=== PATIENT | male | born 1975 | race African-American/Black ===

== ENCOUNTER → 2017-01-03 | Outpatient (CLI) | payer OTHER ==
[~2017-01-03] MED LIST: ACYC400T OR; AMBI5TAB OR; FLUC10TA OR; FOLI5CAP OR; FONDAPARINUX SQ; LABE30TA OR; LEVA750T OR; MAGN250T OR; MULTIVIT PO; OXYC10TA12 OR; POSACONAZOLE PO; PRED5TAB OR; PULMICORT PO; SIROLIMUS PO; THIA100T OR; VIT D 2000 PO; [UNRECOGNIZED DRUG - OTHER] PO
--- NOTE | 2017-01-03 16:45 | REP ---
Duplex extremity venous ultrasound: Right lower extremity. History: Right lower extremity edema. Findings: The deep veins are anechoic and fully compressible from the groin to the popliteal fossa in the right lower extremity. Color flow imaging is homogeneous. Spectral Doppler interrogation demonstrates intact respiratory variation in flow and normal manual augmentation of flow. There is no evidence of deep vein thrombosis. Incidental note is made of several lymph nodes in the right groin. The largest of these is somewhat hypertrophied measuring 2.9 x 1.5 x 1.0 cm. This is essentially unchanged from the March 06, 2015 prior study. Impression: Lymph nodes noted in the right groin, one of which is mildly enlarged but unchanged from 2015. Otherwise negative right lower extremity duplex venous ultrasound. No evidence of deep vein thrombosis. Signed by Augustine Reyes MD 01/03/2017 04:36 P
== END ==
LOC: M RAD 15:18
PROVIDERS: ATTEND Family Medicine
DX: R60.0 Localized edema (principal)
CPT/HCPCS: 93971; G0463

== ENCOUNTER → 2018-06-20 | Outpatient (CLI) | payer OTHER | LOC: M RAD 07:40 | DX: H92.21 Otorrhagia, right ear (principal) ==

== ENCOUNTER → 2018-08-28 | Outpatient (REF) | payer OTHER ==
[2018-08-31 00:06] LABS: OXYCODONE SCREEN Negative ng/mL (Cutoff:5)
== END ==
LOC: M LAB REF 13:02
DX: Z00.00 Encounter for general adult medical examination without abnormal findings (principal)
CPT/HCPCS: 80307

== ENCOUNTER → 2018-08-29 | Outpatient (REF) | payer OTHER ==
[2018-09-01 10:13] LABS: QuantiFERON-TB Gold Plus Negative (Negative)
== END ==
LOC: M SMT PRO 12:54
DX: Z00.00 Encounter for general adult medical examination without abnormal findings (principal)
CPT/HCPCS: 36415

== ENCOUNTER → 2018-09-25 | Outpatient (CLI) | payer OTHER ==
[~2018-09-25] MED LIST changes: +ISOVUE-370 76% 100ML VIAL (Q9967) As Ordered ONE
--- NOTE | 2018-09-25 17:50 | REP ---
Soft Tissue CT study of the neck with contrast: History: History of Hodgkin's lymphoma. Two palpable lymph nodes on the right, preauricular and parotid. Comparison CT study of the internal auditory canal is dated June 20, [address] study of the neck is dated October 31, 2009. CT contrast dose: 75 mL of intravenous Isovue [address] findings: There is a lymph node in the superior aspect of the right parotid gland measuring 10 mm in short axis dimension. This measured 10 mm in short axis dimension in June of 2018 but it is larger than it was on the of November 08, 2009 study. There is some preservation of hilar fat. No other intraparotid lymph node is seen. There is a somewhat less well defined but similar size 9 mm preauricular lymph node on the right which is a new finding from the June 20, 2018 study. Anterior to the external jugular vein at the at the level of the inferior aspect of the right parotid gland, there is a lymph node measuring 8 mm in greatest diameter. There are bilateral submental lymph nodes which are larger than on the October 2009 prior study. One submental lymph node is seen on each side. These measure 10.4 and 10.8 mm in short axis dimension. There is no definite hilar fat associated with either of these lymph nodes which as a change from 2009. There is a smaller right mandibular lymph node measuring 9 mm in greatest diameter. Anterior cervical lymph nodes are noted bilaterally but these are normal in size and smaller than on the 2009 study. No supraclavicular nodes are visible today. Thyroid lobes are normal and symmetric. The upper mediastinum is clear. The lung apices are clear. No bony abnormality is seen. There is a mucous retention cyst in the right maxillary sinus. The middle ear cavities appear to be aerated. There is no evidence of mastoid sinus disease on the right. There is partial opacification of the left mastoid air cells visible today. This it is a change from the recent CT study of June 20, 2018. Impression: There is a 9 mm preauricular node and a 10 mm short axis parotid lymph node on the right. These, as well as two submental and one submandibular lymph nodes, are larger than on the 2009 prior study. There is partial filling of the mastoid air cells on the left consistent with some degree of paranasal sinus inflammation in the mastoid sinus. There is a right maxillary sinus mucous retention cyst. The middle ear cavities remain normally aerated. Electronically Signed by Augustine Reyes MD 09/25/2018 07:47 P
== END ==
LOC: M RAD 16:10
PROVIDERS: ATTEND Otolaryngology
DX: R59.9 Enlarged lymph nodes, unspecified (principal); Z85.71 Personal history of Hodgkin lymphoma
CPT/HCPCS: 70491; Q9967

== ENCOUNTER → 2018-10-06 | Outpatient (CLI) | payer OTHER ==
[~2018-10-06] MED LIST changes: -ISOVUE-370 76% 100ML VIAL (Q9967) As Ordered ONE; +LIDOCAINE 1% MDV 20ML VIAL As Ordered ONE
--- NOTE | 2018-10-06 19:57 | REP ---
ULTRASOUND-GUIDED PREAURICULAR AND SUBMENTAL LYMPH NODE BIOPSY The procedure was performed under the direct supervision of Dr. Reyes. In in the patient has a history of a preauricular lymph node and two submental lymph nodes seen on a previous CT scan dated 09/25/2018. The risks and benefits of the procedure were explained to the patient and informed consent was obtained. The node in the submental region was addressed first. The lymph node was localized using ultrasound guidance. The skin was prepped and draped in a sterile fashion. 1% lidocaine was used as a local anesthetic. Using ultrasound guidance eight fine-needle aspirations were obtained using 25 gauge needles. The right preauricular lymph node was localized using ultrasound guidance. The skin was prepped and draped in a sterile fashion. 1% lidocaine was used as a local anesthetic. Using ultrasound guidance eight fine-needle aspirations were obtained using 25 gauge needles. The patient tolerated the procedure well and there were no immediate complications. After the appropriate amount of monitored convalescence the patient was discharged from the department. Reviewed by CHRISTIANO Fernandez 10/06/2018 05:28 P Electronically Signed by Augustine Reyes MD 10/06/2018 07:48 P
== END ==
LOC: M RADPRO 11:38
PROVIDERS: ATTEND Otolaryngology
DX: D47.Z9 Other specified neoplasms of uncertain behavior of lymphoid, hematopoietic and related tissue (principal)

== ENCOUNTER → 2019-05-09 | Outpatient (REF) | payer OTHER ==
[~2019-05-09] MED LIST changes: -LIDOCAINE 1% MDV 20ML VIAL As Ordered ONE
== END ==
LOC: M LAB REF 18:30
PROVIDERS: ATTEND Plastic Surgery Surgery of the Hand
DX: L91.0 Hypertrophic scar (principal)

== ENCOUNTER → 2019-12-17 | Outpatient (CLI) | payer OTHER | LOC: M LABSMTC 13:35 | PROVIDERS: ATTEND Family Medicine | DX: Z11.59 Encounter for screening for other viral diseases (principal); Z20.828 Contact with and (suspected) exposure to other viral communicable diseases ==

== ENCOUNTER 2020-04-27 19:58 | Emergency (ER) | payer OTHER ==
[2020-04-27] MEDS ORDERED: ASPIRIN 81 MG CHEW TABLET As Ordered ONE (20:14)
[2020-04-27] MEDS ORDERED: ASPIRIN 81 MG CHEW TABLET ONE (20:14)
--- NOTE | 2020-06-04 16:59 | ECGEPIP ---
SINUS RHYTHM POSSIBLE LEFT VENTRICULAR HYPERTROPHY NONSPECIFIC T-WAVE ABNORMALITY ABNORMAL ECG SEE SCANNED DOWNTIME REPORT MTDD
[2020-06-12 08:26] LABS: INR 0.98; PARTIAL THROMBOPLASTIN TIME 26.1 SECONDS (24.2-38.5); PROTHROMBIN TIME 13.2 SECONDS (12.5-14.3)
[2020-06-12 18:37] LABS: BASO % 0.4 % (0.0-1.0); EOS # 0.2 10^3/uL (0.0-0.5); EOS % 2.7 % (0.0-3.0); HEMATOCRIT 42.3 % (42.0-52.0); HEMOGLOBIN 14.5 g/dl (13.5-17.5); LYMPH % 22.6 % (24.0-44.0); MEAN CORPUSCULAR HEMOGLOBIN 27.8 pg (27.0-33.0); MEAN CORPUSCULAR HGB CONC 34.3 g/dl (32.0-36.5); MEAN CORPUSCULAR VOLUME 81.2 fl (80.0-96.0); MONO # 0.8 10^3/uL (0.0-0.8); MONO % 8.9 % (0.0-5.0); NEUTROPHILS # 5.9 10^3/uL (1.5-8.5); PLATELET COUNT, AUTOMATED 260 10^3/uL (150-450); RED BLOOD COUNT 5.21 10^6/uL (4.30-6.10)
[2020-07-13 02:36] LABS: ALBUMIN 3.4 GM/DL (3.2-5.2); ALT/SGPT 36 U/L (12-78); BILIRUBIN,DIRECT < 0.1 MG/DL (0.0-0.2); BILIRUBIN,TOTAL 0.3 MG/DL (0.2-1.0); BLOOD UREA NITROGEN 27 MG/DL (7-18); CALCIUM LEVEL 9.1 MG/DL (8.5-10.1); CARBON DIOXIDE LEVEL 26 MEQ/L (21-32); CHLORIDE LEVEL 108 MEQ/L (98-107); CK-MB VALUE MASS 3.8 NG/ML (<3.6); CPK CREATINE PHOSPHOKINASE 554 U/L (39-308); CREATININE FOR GFR 1.48 MG/DL (0.70-1.30); FREE T4 1.02 NG/DL (0.76-1.46); GLOMERULAR FILTRATION RATE > 60.0 (>60); GLUCOSE, FASTING 102 MG/DL (70-100); LIPASE 140 U/L (73-393); MB/CK RELATIVE INDEX 0.69 (< OR =4); POTASSIUM SERUM 4.5 MEQ/L (3.5-5.1); SODIUM LEVEL 140 MEQ/L (136-145); TOTAL PROTEIN 7.5 GM/DL (6.4-8.2); TROPONIN I < 0.02 NG/ML (< 0.10)
== END 2020-04-27 22:15 | disposition home or self-care (01) ==
LOC: M ED 19:58
DX: R07.9 Chest pain, unspecified (principal); R00.2 Palpitations; E03.9 Hypothyroidism, unspecified; I49.3 Ventricular premature depolarization; I30.9 Acute pericarditis, unspecified; Z79.899 Other long term (current) drug therapy

== ENCOUNTER → 2020-09-07 | Outpatient (REF) ==
[2020-09-07 10:35] LABS: RSV AMPLIFICATION NEGATIVE (NEGATIVE)
== END ==
LOC: M LAB 09:24
PROVIDERS: ATTEND Family Medicine
DX: Z20.828 Contact with and (suspected) exposure to other viral communicable diseases (principal)

== ENCOUNTER → 2020-10-02 | Outpatient (REF) | payer OTHER ==
[2020-10-02 17:41] LABS: HEMATOCRIT 46.4 % (42.0-52.0); HEMOGLOBIN 15.5 g/dl (13.5-17.5); MEAN CORPUSCULAR HEMOGLOBIN 27.8 pg (27.0-33.0); MEAN CORPUSCULAR HGB CONC 33.4 g/dl (32.0-36.5); MEAN CORPUSCULAR VOLUME 83.3 fl (80.0-96.0); PLATELET COUNT, AUTOMATED 333 10^3/uL (150-450); RED BLOOD COUNT 5.57 10^6/uL (4.30-6.10); WHITE BLOOD COUNT 10.2 10^3/uL (4.0-10.0)
[2020-10-02 18:21] LABS: ALBUMIN 3.9 GM/DL (3.2-5.2); BLOOD UREA NITROGEN 21 MG/DL (7-18); CALCIUM LEVEL 9.1 MG/DL (8.5-10.1); CARBON DIOXIDE LEVEL 23 MEQ/L (21-32); CHLORIDE LEVEL 104 MEQ/L (98-107); CREATININE FOR GFR 1.35 MG/DL (0.70-1.30); FREE T4 1.16 NG/DL (0.76-1.46); GLOMERULAR FILTRATION RATE > 60.0 (>60); GLUCOSE, FASTING 98 MG/DL (70-100); PHOSPHORUS LEVEL 3.5 MG/DL (2.5-4.9); POTASSIUM SERUM 4.3 MEQ/L (3.5-5.1); SODIUM LEVEL 135 MEQ/L (136-145); URIC ACID 8.6 MG/DL (3.5-7.2)
== END ==
LOC: M SFHCPLAZ 15:28
PROVIDERS: ATTEND Family Medicine
DX: M10.9 Gout, unspecified (principal); G47.33 Obstructive sleep apnea (adult) (pediatric); E03.2 Hypothyroidism due to medicaments and other exogenous substances

== ENCOUNTER → 2021-03-15 | Outpatient (REF) | LOC: M LABSMTC 10:42 | PROVIDERS: ATTEND Pediatrics | DX: Z11.52 Encounter for screening for COVID-19 (principal) ==

== ENCOUNTER → 2021-06-15 | Outpatient (REF) | LOC: M EMP 09:04 | PROVIDERS: ATTEND Family Medicine | DX: Z11.52 Encounter for screening for COVID-19 (principal) ==

== ENCOUNTER → 2023-08-26 | Outpatient (REF) ==
[2023-08-26 13:44] LABS: RSV AMPLIFICATION NEGATIVE (NEGATIVE)
== END ==
LOC: M EMP 12:41
PROVIDERS: ATTEND Family Medicine
DX: Z20.828 Contact with and (suspected) exposure to other viral communicable diseases (principal)